=== PATIENT | female | born 1990 | race Caucasian/White ===

== ENCOUNTER 2017-06-02 12:45 | Emergency (ER) | payer SELFPAY ==
[~2017-06-02] VITALS: Ht 165.1 cm; Wt 106.6 kg
[2017-06-02] MEDS ORDERED: IV NORMAL SALINE 1000ML BAG 1,000 ML IV SCH (13:06)
--- NOTE | 2017-06-02 13:08 | PHYS DOC ---
Past Medical History Past Medical History: Asthma Past Surgical History: Cholecystectomy Alcohol Use: None Drug Use: None Adult General Chief Complaint Chief Complaint: SHORTNESS OF BREATH HPI HPI Patient is a 26 year old female who presents with sore throat, swollen inguinal and cervical lymph nodes and a fever. She states over symptoms started yesterday, she woke up around 4 AM this morning and had a fever and took some [place] medicine will back to sleep and then this morning she woke up and was in a pile a sweat. She states she has been eating much today because her throat hurts too much but denies any trismus changes in her voice. She states when she stands up she feels lightheaded and dizzy. She denies being on any medications. She has a past medical history of preeclampsia when she was . She denies a cough, nuchal rigidity. She does complain of mild headache. Review of Systems Review of Systems Constitutional: Denies fever or chills [] Eyes: Denies change in visual acuity, redness, or eye pain [] HENT: Positive for nasal congestion and sore throat Respiratory: Denies cough or shortness of breath [] Cardiovascular: No additional information not addressed in HPI [] GI: Denies abdominal pain, nausea, vomiting, bloody stools or diarrhea [] : Denies dysuria or hematuria [] Musculoskeletal: Denies back pain or joint pain [] Integument: Denies rash or skin lesions [] Neurologic: Positive for headache Denies, focal weakness or sensory changes [] Endocrine: Denies polyuria or polydipsia [] All other systems were reviewed and found to be within normal limits, except as documented in this note. Current Medications Current Medications Current Medications Medications (Trade) Dose Ordered Sig/Moris Start Time Stop Time Status Last Admin Dose Admin Acetaminophen (Tylenol) 1,000 mg 1X ONCE 06/02/17 16:00 06/02/17 16:01 DC 06/02/17 15:41 1,000 MG Ceftriaxone Sodium 50 ml @ 100 mls/hr 1X ONCE 06/02/17 16:30 06/02/17 16:59 Dexamethasone Sodium Phosphate (Decadron) 6 mg 1X ONCE 06/02/17 16:15 06/02/17 16:16 Sodium Chloride 1,000 ml @ 1,000 mls/hr 1X ONCE 06/02/17 14:45 06/02/17 15:44 DC 06/02/17 14:33 1,000 MLS/HR Allergies Allergies Allergies Uncoded Allergies Type Severity Reaction Last Updated Verified vicryl suture Allergy Severe 07/13/14 Physical Exam Physical Exam Constitutional: Well developed, well nourished, no acute distress, non-toxic appearance. [] HENT: Normocephalic, atraumatic, bilateral external ears normal, oropharynx moist, no oral exudates, nose normal. Erythematous posterior pharynx, no Mynor angina, left TM mildly erythematous Eyes: PERRLA, EOMI, conjunctiva normal, no discharge. [] Neck: Normal range of motion, no tenderness, supple, no stridor. Anterior and posterior cervical lymphadenopathy noted Cardiovascular:Heart rate regular rhythm, no murmur [] Lungs & Thorax: Bilateral breath sounds clear to auscultation [] Abdomen: Bowel sounds normal, soft, no tenderness, no masses, no pulsatile masses. [] Skin: Warm, dry, no erythema, no rash. [] Back: No tenderness, no CVA tenderness. [] Extremities: No tenderness, no cyanosis, no clubbing, ROM intact, no edema. Inguinal lymphadenopathy noted Neurologic: Alert and oriented X 3, normal motor function, normal sensory function, no focal deficits noted. [] Psychologic: Affect normal, judgement normal, mood normal. [] Current Patient Data Vital Signs Vital Signs Date Time Temp Pulse Resp B/P (MAP) Pulse Ox O2 Delivery O2 Flow Rate FiO2 06/02/17 15:30 102 115/56 (75) 99 Room Air 06/02/17 15:00 18 06/02/17 13:00 98.8 98.8 Lab Values Laboratory Tests Test 06/02/17 13:10 06/02/17 13:45 White Blood Count 16.9 x10^3/uL (4.0-11.0) H Red Blood Count 4.86 x10^6/uL (3.50-5.40) Hemoglobin 13.5 g/dL (12.0-15.5) Hematocrit 41.5 % (36.0-47.0) Mean Corpuscular Volume 85 fL (79-100) Mean Corpuscular Hemoglobin 28 pg (25-35) Mean Corpuscular Hemoglobin Concent 33 g/dL (31-37) Red Cell Distribution Width 13.4 % (11.5-14.5) Platelet Count 332 x10^3/uL (140-400) Neutrophils (%) (Auto) 72 % (31-73) Lymphocytes (%) (Auto) 18 % (24-48) L Monocytes (%) (Auto) 9 % (0-9) Eosinophils (%) (Auto) 1 % (0-3) Basophils (%) (Auto) 1 % (0-3) Neutrophils # (Auto) 12.2 x10^3uL (1.8-7.7) H Lymphocytes # (Auto) 3.0 x10^3/uL (1.0-4.8) Monocytes # (Auto) 1.5 x10^3/uL (0.0-1.1) H Eosinophils # (Auto) 0.1 x10^3/uL (0.0-0.7) Basophils # (Auto) 0.1 x10^3/uL (0.0-0.2) Sodium Level 138 mmol/L (136-145) Potassium Level 3.5 mmol/L (3.5-5.1) Chloride Level 103 mmol/L (98-107) Carbon Dioxide Level 25 mmol/L (21-32) Anion Gap 10 (6-14) Blood Urea Nitrogen 11 mg/dL (7-20) Creatinine 0.8 mg/dL (0.6-1.0) Estimated GFR (Cockcroft-Gault) 85.4 Glucose Level 92 mg/dL (70-99) Calcium Level 9.5 mg/dL (8.5-10.1) Magnesium Level 1.9 mg/dL (1.8-2.4) Total Bilirubin 0.6 mg/dL (0.2-1.0) Direct Bilirubin 0.1 mg/dL (0.0-0.2) Aspartate Amino Transferase (AST) 24 U/L (15-37) Alanine Aminotransferase (ALT) 39 U/L (14-59) Alkaline Phosphatase 106 U/L (46-116) Creatine Kinase 56 U/L (26-192) Creatine Kinase MB (Mass) < 0.5 ng/mL (0.0-3.6) Creatine Kinase MB Relative Index % (0-4) Troponin I Quantitative < 0.017 ng/mL (0.000-0.055) QT-Mvi-S-Type Natriuretic Peptide 34 pg/mL (0-124) Total Protein 8.5 g/dL (6.4-8.2) H Albumin 4.0 g/dL (3.4-5.0) Thyroid Stimulating Hormone (TSH) 1.847 uIU/mL (0.358-3.74) Serum Test, Qualitative Negative (NEG) Heterophil Agglutinins Negative (NEGATIVE) Influenza Type A Antigen Negative (NEGATIVE) Influenza Type B Antigen Negative (NEGATIVE) Laboratory Tests 06/02/17 13:10 Laboratory Tests 06/02/17 13:10 EKG EKG [] Radiology/Procedures Radiology/Procedures [facility] [address] [place] [address] IMAGING REPORT Signed PATIENT: SUSANA PETERS ACCOUNT: [id number] : 1990 LOCATION: ER AGE: 26 SEX: F EXAM STATUS: REG ER ORD. PHYSICIAN: ANTOINETTE BLAS MD REASON: soa PROCEDURE: PORTABLE CHEST 1V AP PORTABLE CHEST Clinical Indication: soa. Headache, fever since yesterday. Comparison: None. Findings: The cardiomediastinal silhouette is normal. Lungs are clear. There is no pneumothorax. No pleural effusion is appreciated. There is no acute bone abnormality. IMPRESSION: No acute cardiopulmonary process. DICTATED and SIGNED BY: LEILANI NEELY MD DATE: 06/02/17 1352 CC: ANTOINETTE BLAS MD; FERNANDO MICHAEL APRN ~ Impressions: Viral syndrome Course & Med Decision Making Course & Med Decision Making Pertinent Labs and Imaging studies reviewed. (See chart for details) Patient presents with rapid heart rate and sore throat with anterior posterior cervical lymphadenopathy in inguinal lymphadenopathy. She also has a left TM that's erythematous. She received Decadron 6 mg IV and 1 g of Rocephin. Do not believe she has meningitis that she does not have any nuchal rigidity and her pain is around her left ear and around her cervical lymphadenopathy. She received 2 L of fluids and feels better after getting Tylenol. She's being discharged with Augmentin for the next 7 days. Return precautions given. She is agreeable plan of being discharged in stable condition at this time. Dragon Disclaimer Dragon Disclaimer This electronic medical record was generated, in whole or in part, using a voice recognition dictation system. Departure Departure Impression: Primary Impression: Viral syndrome Disposition: 01 HOME, SELF-CARE Condition: STABLE Referrals: NOAH MORAN APRN (PCP) Patient Instructions: Viral Syndrome Additional Instructions: You likely have a viral syndrome is causing her symptoms. Influenza was negative and you have swollen lymph nodes in her neck and groin. This is usually due to mono however your left eardrum is red therefore he your being discharged with antibiotics in case she might have a urine infection. He received IV antibiotics and fluids while your in the emergency department in addition to IV steroids. You will need to follow-up with primary care physician within the next few days. If you develop high fevers, severe neck pain, troubles breathing, or swallowing, please return back to the emergency department. Scripts Amoxicillin/Potassium Clav (AUGMENTIN 875-125 TABLET) 1 Each Tablet 1 TAB PO BID, #20 TAB Prov: ANTOINETTE BLAS MD 06/02/17 ANTOINETTE BLAS MD Jun 02, 2017 13:08
--- NOTE | 2017-06-02 13:24 | EKG ---
[facility] [address] [place] [address] Test Date: 2017-06-02 Test Time: 13:22:01 Pat Name: SUSANA PETERS Department: Room: Gender: F Trade Embalmer: : 1990 Requested By: ANTIONETTE BLAS Order Number: [id number] Reading MD: Jr Doherty MD Measurements Intervals [place] Rate: 107 P: 51 OK: 154 QRS: -24 QRSD: 78 T: 55 QT: 306 QTc: 414 Interpretive Statements SINUS TACHYCARDIA Electronically Signed On 06-04-2017 12:29:18 [employer]ITER[employer] PROFESSOR by Jr Doherty MD
[2017-06-02 13:28] LABS: BASO # 0.1 x10^3/uL (0.0-0.2); BASO % 1 % (0-3); EOS % 1 % (0-3); HEMATOCRIT 41.5 % (36.0-47.0); HEMOGLOBIN 13.5 g/dL (12.0-15.5); LYMPH % 18 % (24-48); MEAN CORPUSCULAR HEMOGLOBIN 28 pg (25-35); MEAN CORPUSCULAR HGB CONC 33 g/dL (31-37); MEAN CORPUSCULAR VOLUME 85 fL (79-100); MONO % 9 % (0-9); NEUT % 72 % (31-73); PLATELET COUNT 332 x10^3/uL (140-400); RED BLOOD COUNT 4.86 x10^6/uL (3.50-5.40); RED CELL DISTRIBUTION WIDTH 13.4 % (11.5-14.5); WHITE BLOOD COUNT 16.9 x10^3/uL (4.0-11.0)
[2017-06-02 13:42] LABS: CALCIUM 9.5 mg/dL (8.5-10.1); CREATININE 0.8 mg/dL (0.6-1.0); GFR 85.4; POTASSIUM 3.5 mmol/L (3.5-5.1)
[2017-06-02 13:46] LABS: NEG OBC SER NEG; POS OBC SER POS
[2017-06-02 13:48] LABS: DIRECT BILIRUBIN 0.1 mg/dL (0.0-0.2); MAGNESIUM 1.9 mg/dL (1.8-2.4); TOTAL BILIRUBIN 0.6 mg/dL (0.2-1.0); TOTAL PROTEIN 8.5 g/dL (6.4-8.2)
[2017-06-02 14:00] LABS: NEGATIVE OBC MONO NEG; POSITIVE OBC MONO POS
--- NOTE | 2017-06-02 14:01 | RAD ---
AP PORTABLE CHEST Clinical Indication: soa. Headache, fever since yesterday. Comparison: None. Findings: The cardiomediastinal silhouette is normal. Lungs are clear. There is no pneumothorax. No pleural effusion is appreciated. There is no acute bone abnormality. IMPRESSION: No acute cardiopulmonary process.
[2017-06-02 14:18] LABS: CREATINE KINASE 56 U/L (26-192)
[2017-06-02 14:23] LABS: CKMB MASS < 0.5 ng/mL (0.0-3.6)
[2017-06-02 14:25] LABS: OBC FLU VALID
[2017-06-02] MEDS ORDERED: IV NORMAL SALINE 1000ML BAG 1,000 ML IV ONE (14:45)
[2017-06-02] MEDS ORDERED: ACETAMINOPHEN 500 MG TABLET PO ONE (16:00)
[2017-06-02] MEDS ORDERED: DEXAMETHASONE SOD PHOS 4 MG/ML VIAL IV ONE (16:15)
[2017-06-02] MEDS ORDERED: AMOX1TAB61 PO (16:19)
[2017-06-02 16:29] LABS: BILIRUBIN,URINE NEGATIVE (NEG); GLUCOSE,URINE NEGATIVE (NEG); NITRITE,URINE NEGATIVE (NEG); PROTEIN,URINE NEGATIVE (NEG-TRACE)
[2017-06-02 16:30] VITALS: BP 126/67
[2017-06-02 16:37] LABS: BACTERIA,URINE MANY /HPF (0-FEW); RBC,URINE 0 /HPF (0-2); SQUAMOUS EPITHELIAL CELL,UR MANY /LPF
[2017-06-02 16:40] LABS: BARBITURATES NEG (NEG); BENZODIAZEPINES NEG (NEG); CANNABINOIDS NEG (NEG); COCAINE NEG (NEG); METHADONE NEG (NEG); OPIATES NEG (NEG); PHENCYCLIDINE NEG (NEG)
[2017-06-03 07:30] LABS: NEGATIVE OBC STREP NEG; POSITIVE OBC STREP POS
== END 2017-06-02 17:01 | disposition home or self-care (01) ==
LOC: ER 12:45
DX: B34.9 Viral infection, unspecified (principal); J45.909 Unspecified asthma, uncomplicated; Z90.49 Acquired absence of other specified parts of digestive tract; Z88.8 Allergy status to other drugs, medicaments and biological substances
CPT/HCPCS: 36415; 71010; 80048; 80076; 80307; 81001; 82553; 83735; 83880; 84443; 84484; 84703; 85025; 86308; 87070; 87086; 87804; 87880; 93005; 96361; 96365; 96375; 99285; J0690; J1100; J7030; G0479

== ENCOUNTER 2017-10-21 18:02 | Emergency (ER) | payer OTHER ==
[2017-10-21 18:51] LABS: URINE HCG POC HCG NEGATIVE (Negative)
[2017-10-21] MEDS: IV NORMAL SALINE 1000ML BAG 1,000 ML IV (19:27)
[2017-10-21] MEDS: ONDANSETRON PF 4 MG/2 ML VIAL. IV (19:28)
[2017-10-21 19:30] LABS: ADD MAN DIFF? NO
[2017-10-21] MEDS: FAMOTIDINE 20 MG/2 ML VIAL IVP (19:30)
[2017-10-21] MEDS: fentaNYL PF VIAL 100 MCG/2 ML VIAL IV (19:33)
[2017-10-21 19:36] LABS: BASO # 0.1 x10^3/uL (0.0-0.2); BASO % 1 % (0-3); EOS # 0.2 x10^3/uL (0.0-0.7); EOS % 2 % (0-3); HEMATOCRIT 43.4 % (36.0-47.0); HEMOGLOBIN 14.6 g/dL (12.0-15.5); LYMPH # 3.3 x10^3/uL (1.0-4.8); LYMPH % 37 % (24-48); MEAN CORPUSCULAR HEMOGLOBIN 28 pg (25-35); MEAN CORPUSCULAR HGB CONC 34 g/dL (31-37); MEAN CORPUSCULAR VOLUME 84 fL (79-100); MONO # 0.9 x10^3/uL (0.0-1.1); MONO % 10 % (0-9); NEUT # 4.6 x10^3uL (1.8-7.7); NEUT % 51 % (31-73); PLATELET COUNT 359 x10^3/uL (140-400); RED BLOOD COUNT 5.17 x10^6/uL (3.50-5.40)
[2017-10-21 19:40] LABS: BILIRUBIN,URINE NEGATIVE (NEG); CLARITY,URINE CLEAR; COLOR,URINE YELLOW; GLUCOSE,URINE NEGATIVE (NEG); NITRITE,URINE NEGATIVE (NEG); PROTEIN,URINE NEGATIVE (NEG-TRACE); UROBILINOGEN,URINE 0.2 mg/dL (0.2 mg/dL)
[2017-10-21 19:42] LABS: ANION GAP 12 (6-14); BLOOD UREA NITROGEN 11 mg/dL (7-20); BUN/CREATININE RATIO 14 (6-20); CALCIUM 9.1 mg/dL (8.5-10.1); CARBON DIOXIDE 26 mmol/L (21-32); CHLORIDE 103 mmol/L (98-107); CREATININE 0.8 mg/dL (0.6-1.0); GFR 85.4; GLUCOSE 91 mg/dL (70-99); POTASSIUM 3.1 mmol/L (3.5-5.1); SODIUM 141 mmol/L (136-145)
[2017-10-21 19:47] LABS: ALBUMIN 3.9 g/dL (3.4-5.0); ALBUMIN/GLOBULIN RATIO 0.9 (1.0-1.7); ALK PHOS 123 U/L (46-116); ALT (SGPT) 48 U/L (14-59); AST (SGOT) 30 U/L (15-37); LIPASE 102 U/L (73-393); TOTAL BILIRUBIN 0.4 mg/dL (0.2-1.0); TOTAL PROTEIN 8.4 g/dL (6.4-8.2)
[2017-10-21 20:01] LABS: BACTERIA,URINE FEW /HPF (0-FEW); RBC,URINE OCC /HPF (0-2); SQUAMOUS EPITHELIAL CELL,UR FEW /LPF
[2017-10-21] MEDS: LOPERAMIDE 2 MG CAPSULE PO (21:07)
[2017-10-21] MEDS: POTASSIUM CHLORIDE 20 MEQ TABLET.ER. PO (21:07)
[2017-10-22 23:12] LABS: C DIFF BY PCR Negative (Negative)
== END 2017-10-21 21:53 | disposition home or self-care (01) ==
LOC: ER 18:02
DX: R10.33 Periumbilical pain (principal); R19.7 Diarrhea, unspecified; R11.2 Nausea with vomiting, unspecified; I10 Essential (primary) hypertension; F12.10 Cannabis abuse, uncomplicated; Z90.49 Acquired absence of other specified parts of digestive tract; Z88.8 Allergy status to other drugs, medicaments and biological substances
CPT/HCPCS: 36415; 74022; 80053; 81001; 81025; 83690; 85025; 87045; 87086; 87205; 87324; 96361; 96374; 96375; 99285-25; J2405; J3010; J7030; S0028

== ENCOUNTER 2018-10-14 20:01 | Emergency (ER) | payer OTHER ==
[~2018-10-14] VITALS: Ht 165.1 cm; Wt 110.2 kg
[~2018-10-14 20:01] MED LIST: AMOX1TAB61 PO; DICY20TA3 PO; HYDR-3164 PO; ONDA4TAB10 SL
--- NOTE | 2018-10-14 21:04 | PHYS DOC ---
Past Medical History Past Medical History: Anxiety, Hypertension Additional Past Medical Histor: PRE-DIABETES Past Surgical History: Cholecystectomy, Alcohol Use: Occasionally Drug Use: Marijuana Adult General Chief Complaint Chief Complaint: CHEST WALL PAIN HPI HPI Patient is a 27 year old female who presents with substernal chest pain. She states the pain started at 3 pm this afternoon when she was sitting at her desk. She describes the pain as a constant pressure that will change to sharp shooting sensation intermittently. The pain does not radiate from her sternum. Nothing seems to make the pain better or worse. Patient states she has a history of anxiety and panic attacks but states this feels different. She reports some lightheadedness and dizziness. Denies any shortness of breath, cough, unilateral leg swelling, or back pain. [] Review of Systems Review of Systems Constitutional: Denies fever or chills [] Eyes: Denies change in visual acuity, redness, or eye pain [] HENT: Denies nasal congestion or sore throat [] Respiratory: Denies cough or shortness of breath [] Cardiovascular: Reports chest pain and abnormal heart beats [] GI: Denies abdominal pain, nausea, vomiting[] : Denies dysuria or hematuria [] Musculoskeletal: Denies back pain or joint pain [] Integument: Denies rash or skin lesions [] Neurologic: Denies headache, focal weakness [] Complete systems were reviewed and found to be within normal limits, except as documented in this note. Allergies Allergies Allergies Uncoded Allergies Type Severity Reaction Last Updated Verified vicryl suture Allergy Severe 07/13/14 Physical Exam Physical Exam Constitutional: No acute distress, non-toxic appearance. [] HENT: Normocephalic, atraumatic[] Eyes: EOMI, conjunctiva normal. [] Neck: Normal range of motion, supple. [] Cardiovascular:Heart rate regular rhythm, no murmur [] Lungs & Thorax: Bilateral breath sounds clear to auscultation, no rhonchi, rhales, or wheezes [] Abdomen: Bowel sounds normal, soft, no tenderness. [] Skin: Warm, dry, no rash.[] Back: No tenderness, no CVA tenderness. [] Extremities: No tenderness, no cyanosis, no edema. [] Neurologic: Alert and oriented X 3, no focal deficits noted. [] Psychologic: Affect normal, mood normal. [] Current Patient Data Vital Signs Vital Signs Date Time Temp Pulse Resp B/P (MAP) Pulse Ox O2 Delivery O2 Flow Rate FiO2 10/14/18 20:20 98.1 104 18 152/82 (105) 99 Room Air 98.1 Lab Values Laboratory Tests Test 10/14/18 20:30 10/14/18 21:29 White Blood Count 11.1 x10^3/uL (4.0-11.0) H Red Blood Count 4.66 x10^6/uL (3.50-5.40) Hemoglobin 13.0 g/dL (12.0-15.5) Hematocrit 39.2 % (36.0-47.0) Mean Corpuscular Volume 84 fL (79-100) Mean Corpuscular Hemoglobin 28 pg (25-35) Mean Corpuscular Hemoglobin Concent 33 g/dL (31-37) Red Cell Distribution Width 14.7 % (11.5-14.5) H Platelet Count 382 x10^3/uL (140-400) Neutrophils (%) (Auto) 58 % (31-73) Lymphocytes (%) (Auto) 35 % (24-48) Monocytes (%) (Auto) 6 % (0-9) Eosinophils (%) (Auto) 1 % (0-3) Basophils (%) (Auto) 1 % (0-3) Neutrophils # (Auto) 6.4 x10^3uL (1.8-7.7) Lymphocytes # (Auto) 3.8 x10^3/uL (1.0-4.8) Monocytes # (Auto) 0.7 x10^3/uL (0.0-1.1) Eosinophils # (Auto) 0.1 x10^3/uL (0.0-0.7) Basophils # (Auto) 0.1 x10^3/uL (0.0-0.2) Sodium Level 140 mmol/L (136-145) Potassium Level 3.2 mmol/L (3.5-5.1) L Chloride Level 102 mmol/L (98-107) Carbon Dioxide Level 23 mmol/L (21-32) Anion Gap 15 (6-14) H Blood Urea Nitrogen 9 mg/dL (7-20) Creatinine 0.8 mg/dL (0.6-1.0) Estimated GFR (Cockcroft-Gault) 84.8 BUN/Creatinine Ratio 11 (6-20) Glucose Level 92 mg/dL (70-99) Calcium Level 9.3 mg/dL (8.5-10.1) Magnesium Level 1.9 mg/dL (1.8-2.4) Total Bilirubin 0.4 mg/dL (0.2-1.0) Aspartate Amino Transferase (AST) 17 U/L (15-37) Alanine Aminotransferase (ALT) 27 U/L (14-59) Alkaline Phosphatase 101 U/L (46-116) Creatine Kinase 77 U/L (26-192) Creatine Kinase MB (Mass) 0.5 ng/mL (0.0-3.6) Creatine Kinase MB Relative Index 0.6 % (0-4) Troponin I Quantitative < 0.017 ng/mL (0.000-0.055) Total Protein 8.1 g/dL (6.4-8.2) Albumin 4.0 g/dL (3.4-5.0) Albumin/Globulin Ratio 1.0 (1.0-1.7) Lipase 88 U/L (73-393) POC Urine HCG, Qualitative Hcg negative (Negative) Laboratory Tests 10/14/18 20:30 Laboratory Tests 10/14/18 20:30 EKG EKG @2020 NSR at 100bpm, NO ST elevation Radiology/Procedures Radiology/Procedures PROCEDURE: CHEST PA & LATERAL Chest, PA and Lateral: Technique: PA and lateral views of the chest were obtained. History: Chest pain. Comparison: 06/02/2017. Findings: The heart and pulmonary vasculature appear within normal limits. The lungs are clear. The pleural margins are clear. Impression: No acute chest process is seen. Electronically signed by: Mario Alberto Collado MD (10/14/2018 10:09 PM) [facility] DICTATED and SIGNED BY: MARIO ALBERTO COLLADO MD[] Course & Med Decision Making Course & Med Decision Making 27 [id number] presented to emergency department for nonexertional substernal chest pain that was sudden in onset. Pertinent Labs and Imaging studies reviewed. Patient was PERC negative. Chest x-ray showed no acute process. Lab work was unremarkable. Patient stable for discharge with outpatient follow-up with PCP. Discussed findings and plan with patient and family, who acknowledge understanding and agreement.(See chart for details) [] Dragon Disclaimer Dragon Disclaimer This electronic medical record was generated, in whole or in part, using a voice recognition dictation system. Departure Departure Impression: Primary Impression: Atypical chest pain Disposition: 01 HOME, SELF-CARE Condition: STABLE Referrals: FERNANDO MICHAEL APRN (PCP) Patient Instructions: Chest Pain (Nonspecific), [id number] KASIA LUNA DO Oct 14, 2018 21:04
[2018-10-14 21:08] LABS: BASO # 0.1 x10^3/uL (0.0-0.2); BASO % 1 % (0-3); EOS # 0.1 x10^3/uL (0.0-0.7); EOS % 1 % (0-3); HEMATOCRIT 39.2 % (36.0-47.0); LYMPH # 3.8 x10^3/uL (1.0-4.8); LYMPH % 35 % (24-48); MEAN CORPUSCULAR HEMOGLOBIN 28 pg (25-35); MEAN CORPUSCULAR HGB CONC 33 g/dL (31-37); MEAN CORPUSCULAR VOLUME 84 fL (79-100); MONO # 0.7 x10^3/uL (0.0-1.1); MONO % 6 % (0-9); NEUT # 6.4 x10^3uL (1.8-7.7); NEUT % 58 % (31-73); PLATELET COUNT 382 x10^3/uL (140-400); RED BLOOD COUNT 4.66 x10^6/uL (3.50-5.40); RED CELL DISTRIBUTION WIDTH 14.7 % (11.5-14.5); WHITE BLOOD COUNT 11.1 x10^3/uL (4.0-11.0)
[2018-10-14 21:23] LABS: CALCIUM 9.3 mg/dL (8.5-10.1); CREATININE 0.8 mg/dL (0.6-1.0)
[2018-10-14 21:24] LABS: GFR 84.8; POTASSIUM 3.2 mmol/L (3.5-5.1)
[2018-10-14 21:30] LABS: MAGNESIUM 1.9 mg/dL (1.8-2.4); TOTAL BILIRUBIN 0.4 mg/dL (0.2-1.0); TOTAL PROTEIN 8.1 g/dL (6.4-8.2)
--- NOTE | 2018-10-14 22:12 | RAD ---
Chest, PA and Lateral: Technique: PA and lateral views of the chest were obtained. History: Chest pain. Comparison: 06/02/2017. Findings: The heart and pulmonary vasculature appear within normal limits. The lungs are clear. The pleural margins are clear. Impression: No acute chest process is seen. Electronically signed by: Mario Alberto Collado MD (10/14/2018 10:09 PM) [facility]
[2018-10-14 22:24] VITALS: BP 146/81
--- NOTE | 2018-10-15 07:56 | EKG ---
[facility] [address] [place] [address] Test Date: 2018-10-14 Test Time: 20:21:12 Pat Name: SUSANA PETERS Department: Room: Gender: F Bobbin Disker: : 1990 Requested By: KASIA LUNA Order Number: [id number] Reading MD: Jr Doherty MD Measurements Intervals [place] Rate: 99 P: 74 ND: 152 QRS: -23 QRSD: 94 T: 64 QT: 322 QTc: 418 Interpretive Statements SINUS RHYTHM NON-SPECIFIC ST/T CHANGES Electronically Signed On 10-16-2018 9:32:48 CDT by Jr Doherty MD
== END 2018-10-14 22:44 | disposition home or self-care (01) ==
LOC: ER 20:01
DX: R07.2 Precordial pain (principal); R42 Dizziness and giddiness; I10 Essential (primary) hypertension; F41.9 Anxiety disorder, unspecified; Z88.8 Allergy status to other drugs, medicaments and biological substances
CPT/HCPCS: 36415; 71046; 80053; 81025; 82553; 83690; 83735; 84484; 85025; 93005; 99284-25